=== PATIENT | female | born 1985 | race Caucasian/White ===

== ENCOUNTER 2017-01-12 16:40 | Emergency (ER) | payer SELFPAY ==
[2017-01-12 19:32] LABS: APPEARANCE CLEAR (CLEAR); BILIRUBIN NEGATIVE (NEGATIVE); COLOR YELLOW (YELLOW); GLUCOSE NEGATIVE (NEGATIVE); KETONE NEGATIVE (NEGATIVE); NITRITE NEGATIVE (NEGATIVE); PROTEIN NEGATIVE (NEGATIVE); SPECIFIC GRAVITY 1.025 (1.005-1.020); UROBILINOGEN NORMAL (NORMAL)
[2017-01-12 19:33] LABS: BACTERIA MODERATE /hpf (NONE SEEN); EPITHELIAL CELLS 0-5 /hpf (0-5); HCG URINE NEGATIVE (NEGATIVE); RED CELLS - URINE 0-5 /hpf (0-5); WHITE CELLS - URINE 0-5 /hpf (0-5)
== END 2017-01-13 00:38 | disposition home or self-care (01) ==
LOC: D.ER 16:40
PROVIDERS: Emergency Medicine
DX: A64 Unspecified sexually transmitted disease (principal); M54.12 Radiculopathy, cervical region

== ENCOUNTER 2017-02-08 19:32 | Emergency (ER) | payer MEDICAID | END 2017-02-08 21:21 | disposition home or self-care (01) | LOC: D.ER 19:32 | DX: S83.91XA Sprain of unspecified site of right knee, initial encounter (principal); X58.XXXA Exposure to other specified factors, initial encounter; Y93.89 Activity, other specified; Y92.89 Other specified places as the place of occurrence of the external cause ==

== ENCOUNTER → 2017-05-28 19:58 | Emergency (ER) | payer MEDICAID | END | disposition home or self-care (01) | LOC: D.ER 19:58 | DX: M25.561 Pain in right knee (principal); S83.91XA Sprain of unspecified site of right knee, initial encounter; X58.XXXA Exposure to other specified factors, initial encounter; Y93.89 Activity, other specified; Y92.019 Unspecified place in single-family (private) house as the place of occurrence of the external cause; F17.200 Nicotine dependence, unspecified, uncomplicated ==

== ENCOUNTER → 2017-06-18 16:32 | Outpatient (CLI) | payer MEDICAID | END | disposition home or self-care (01) | LOC: D.MRI 13:00 | DX: M23.611 Other spontaneous disruption of anterior cruciate ligament of right knee (principal); X58.XXXA Exposure to other specified factors, initial encounter; Y93.89 Activity, other specified; Y92.89 Other specified places as the place of occurrence of the external cause ==

== ENCOUNTER 2018-10-28 06:57 | Emergency (ER) | payer SELFPAY ==
[~2018-10-28] VITALS: Ht 172.7 cm; Wt 111.1 kg
[2018-10-28 07:02] VITALS: Ht 172.7 cm; Wt 111.1 kg
[2018-10-28] MEDS ORDERED: ZOFRAN ODT4 MG/UDTAB PO (07:17)
[2018-10-28 07:51] LABS: APPEARANCE CLEAR (CLEAR); BILIRUBIN NEGATIVE (NEGATIVE); COLOR YELLOW (YELLOW); GLUCOSE NEGATIVE (NEGATIVE); HCG URINE NEGATIVE (NEGATIVE); KETONE NEGATIVE (NEGATIVE); NITRITE NEGATIVE (NEGATIVE); PROTEIN NEGATIVE (NEGATIVE); SPECIFIC GRAVITY 1.025 (1.005-1.020); UROBILINOGEN NORMAL (NORMAL)
[2018-10-28] MEDS ORDERED: CYCLOBENZAPRINE10 MG PO (08:01)
[2018-10-28 08:17] VITALS: BP 136/83
== END 2018-10-28 08:13 | disposition home or self-care (01) ==
LOC: D.ER 06:57
PROVIDERS: Family Medicine
DX: M54.5 Low back pain (principal)

== ENCOUNTER 2018-11-21 16:53 | Emergency (ER) | payer SELFPAY ==
[~2018-11-21] VITALS: Ht 172.7 cm; Wt 90.9 kg
[~2018-11-21 16:53] MED LIST: CYCLOBENZAPRINE10 MG PO; ZOFRAN ODT4 MG/UDTAB PO
[2018-11-21 17:38] VITALS: BP 132/95; Ht 172.7 cm; Wt 90.9 kg
[2018-11-21] MEDS ORDERED: NEURONTIN 300300 MG PO (17:44)
[2018-11-21] MEDS ORDERED: BACLOFEN20 M1 PO (18:39)
[2018-11-21] MEDS ORDERED: MUPIROCIN22 GM TOPICAL (18:39)
[2018-11-21] MEDS ORDERED: VOLTAREN75 MG PO (18:39)
== END 2018-11-21 19:40 | disposition home or self-care (01) ==
LOC: D.ER 16:53
DX: S16.1XXA Strain of muscle, fascia and tendon at neck level, initial encounter (principal); V89.2XXA Person injured in unspecified motor-vehicle accident, traffic, initial encounter